=== PATIENT | female | born 1975 | race Caucasian/White ===

== ENCOUNTER → 2020-10-23 | Emergency (ER) | payer MEDICARE, MEDICAID ==
[~2020-10-23] VITALS: Ht 152.4 cm; Wt 65.9 kg
[~2020-10-23] MED LIST: diphenhydrAMINE 50 mg/ml inj IV ONE; normal saline 1000ML IV soln IVB ONE; proCHLORperazine 10 MG/2 ml inj IV ONE
[2020-10-23 18:54] VITALS: BP 139/71
== END | disposition home or self-care (01) ==
LOC: ER 14:34
DX: G43.909 Migraine, unspecified, not intractable, without status migrainosus (principal); R11.0 Nausea; H61.22 Impacted cerumen, left ear
CPT/HCPCS: 96361; 96374; 96375; 99284; J0780; J1200; J7030

== ENCOUNTER 2020-11-09 05:48 | Day surgery (SDC) | payer MEDICARE, MEDICAID ==
[2020-11-02 15:12] LABS: BASOPHILS # (AUTO) 0.1 X10'3 (0-0.2); BASOPHILS % (AUTO) 0.9 % (0-1); EOSINOPHILS % (AUTO) 0.6 % (0-6); LYMPHOCYTES # (AUTO) 1.5 X10'3 (1.1-4.8); LYMPHOCYTES % (AUTO) 20.7 % (21-51); MEAN CORPUSCULAR HGB CONC 33.9 g/dL (33.0-36.5); MEAN CORPUSCULAR VOLUME 91.4 FL (78-98); MEAN PLATELET VOLUME 7.4 FL (7.4-10.4); MONOCYTES # (AUTO) 0.5 X10'3 (0-0.9); MONOCYTES % (AUTO) 7.1 % (2-12); NEUTROPHILS # (AUTO) 5.2 X10'3 (1.8-7.7); NEUTROPHILS % (AUTO) 70.7 % (42-75); PRE OP HEMOGLOBIN 13.9 g/dL (12.0-16.0); PRE OP PLATELET COUNT 292 X10'3 (140-440); RED BLOOD COUNT 4.49 X10'6 (4.20-5.60); RED CELL DISTRIBUTION WIDTH 13.6 % (11.5-14.5)
[2020-11-02 15:19] LABS: HCG SERUM QL NEGATIVE
[2020-11-02 15:25] LABS: ALBUMIN 3.6 G/DL (3.4-5.0); ALBUMIN/GLOBULIN RATIO 0.8 (1.1-1.5); ALKALINE PHOSPHATASE 109 IU/L (46-116); BLOOD UREA NITROGEN 15 MG/DL (7-18); BUN/CREATININE RATIO 20.5 (6.6-38.0); CALCIUM 9.2 MG/DL (8.5-10.1); CHLORIDE 103 MMOL/L (99-107); CREATININE 0.73 MG/DL (0.40-0.90); PRE OP ALT 17 U/L (30-65); PRE OP ANION GAP 12 (8-16); PRE OP AST 11 U/L (10-37); PRE OP BILIRUB, TOTAL 0.3 MG/DL (0.0-1.0); PRE OP GLUCOSE 94 MG/DL (70-104); PRE OP POTASSIUM 3.6 MMOL/L (3.4-5.1); PRE OP SODIUM 139 MMOL/L (135-145); TOTAL CARBON DIOXIDE 24.1 MMOL/L (24-32); eGFR 86 ML/MIN
[~2020-11-09] VITALS: Ht 152.4 cm; Wt 66.0 kg
[~2020-11-09 05:48] MED LIST changes: +BETH25TA43 PO; +CALC-157 PO; +CHOL400T PO; +DOCU-22 PO; +GABA-530 PO; +MIRT15TA8 PO; +OMEP-50 PO; +ONDA-103 PO; +POLY119P2 PO; +RIZA10TA28 PO; +SENN8.6T19 PO; +SUMA25TA35 PO; +ZIPR20CA12 PO; +cefazolin/dext.iso 2gm/100ml IV ONE; -diphenhydrAMINE 50 mg/ml inj IV ONE; +famotidine 20mg tablet PO ONE; -normal saline 1000ML IV soln IVB ONE; -proCHLORperazine 10 MG/2 ml inj IV ONE; +ringers solution, lacted 1,000 ML IV SCH
[2020-11-09 06:19] VITALS: BP 146/88
[2020-11-09] MEDS ORDERED: BUPIVAcaine/PF 2.5 mg/ml (0.25%) 30ml vial ONE (06:52)
[2020-11-09] MEDS ORDERED: LIDOcaine 0.5% (5mg/ml) 50ml vial ONE (07:40)
[2020-11-09] MEDS ORDERED: fentaNYL/PF 50MCG/1 ML 2ML syringe ONE (07:45)
[2020-11-09] MEDS ORDERED: midazolam 1 mg/ML 2ml injection ONE (07:45)
[2020-11-09 08:10] VITALS: BP 120/85
--- NOTE | 2020-11-09 08:10 | NUR ---
Received from OR via , accompanied by Anesthesiologist DR HAND and report given by Anesthesiolgist. AWAKENS TO VOICE. VITALS STABLE. DRESSING DI. ZEN PAIN. FINGERS WARM AND PINK.
[2020-11-09] MEDS ORDERED: labetalol 20mg/4ml (5mg/ml) syringe IV PRN (08:15)
[2020-11-09] MEDS ORDERED: meperidine/PF 25mg/ml syringe IV PRN (08:15)
[2020-11-09] MEDS ORDERED: fentaNYL/PF 50MCG/1 ML 2ML syringe IV PRN ×2 (08:15)
[2020-11-09] MEDS ORDERED: ondansetron/PF 4mg/2ml inj IV PRN (08:15)
[2020-11-09] MEDS ORDERED: proCHLORperazine 10 MG/2 ml inj IV PRN (08:15)
[2020-11-09] MEDS ORDERED: acetaminophen 1,000mg/100ml IV 100 ML IV PRN (08:15)
[2020-11-09] MEDS ORDERED: morphine 2 MG/ML inj. syringe IV PRN (08:15)
[2020-11-09] MEDS ORDERED: morphine 4 MG/ML inj SYRINge IV PRN (08:15)
[2020-11-09] MEDS ORDERED: ringers solution, lacted 1,000 ML IV SCH (08:15)
[2020-11-09] MEDS ORDERED: hydrALAZINE 20mg/ml inj. IV PRN (08:15)
[2020-11-09 08:20] VITALS: BP 140/87
[2020-11-09 08:30] VITALS: BP 134/84
[2020-11-09] MEDS ORDERED: propofol inj 20 ML IV ONE (08:46)
--- NOTE | 2020-11-09 08:50 | NUR ---
AWAKE AND ORIENTED. VITALS STABLE. DRESSING DI. ZEN PAIN. 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
== END 2020-11-09 08:50 | disposition home or self-care (01) ==
LOC: PAS 05:48
PROVIDERS: ATTEND Orthopaedic Surgery Hand Surgery
DX: G56.01 Carpal tunnel syndrome, right upper limb (principal); Z20.822 Contact with and (suspected) exposure to COVID-19; G43.909 Migraine, unspecified, not intractable, without status migrainosus; F32.9 Major depressive disorder, single episode, unspecified; F41.9 Anxiety disorder, unspecified; Q05.9 Spina bifida, unspecified; G89.29 Other chronic pain; Z86.711 Personal history of pulmonary embolism; Z98.890 Other specified postprocedural states; Z79.899 Other long term (current) drug therapy; Z87.01 Personal history of pneumonia (recurrent); Z79.2 Long term (current) use of antibiotics
CPT/HCPCS: 29848; 36415; 80053; 82948; 84703; 85025; J2001; J2250; J2704; J3010; J3490; U0003; U0005; A4215; A6449; A7000; J7120

== ENCOUNTER 2021-01-18 05:56 | Day surgery (SDC) | payer MEDICARE, MEDICAID ==
[2021-01-14 12:41] LABS: BASOPHILS % (AUTO) 0.7 % (0-1); EOSINOPHILS # (AUTO) 0.2 X10'3 (0-0.9); EOSINOPHILS % (AUTO) 2.5 % (0-6); LYMPHOCYTES # (AUTO) 2.2 X10'3 (1.1-4.8); LYMPHOCYTES % (AUTO) 31.4 % (21-51); MEAN CORPUSCULAR HEMOGLOBIN 30.8 PG (27.0-31.0); MEAN CORPUSCULAR HGB CONC 33.5 g/dL (33.0-36.5); MEAN CORPUSCULAR VOLUME 91.8 FL (78-98); MEAN PLATELET VOLUME 7.5 FL (7.4-10.4); MONOCYTES # (AUTO) 0.5 X10'3 (0-0.9); NEUTROPHILS # (AUTO) 4.1 X10'3 (1.8-7.7); NEUTROPHILS % (AUTO) 58.4 % (42-75); PRE OP HEMATOCRIT 41.4 % (35.0-45.0); PRE OP HEMOGLOBIN 13.9 g/dL (12.0-16.0); PRE OP PLATELET COUNT 289 X10'3 (140-440); RED BLOOD COUNT 4.51 X10'6 (4.20-5.60); RED CELL DISTRIBUTION WIDTH 13.7 % (11.5-14.5)
[2021-01-14 13:04] LABS: ALBUMIN 3.2 G/DL (3.4-5.0); ALBUMIN/GLOBULIN RATIO 0.8 (1.1-1.5); ALKALINE PHOSPHATASE 88 IU/L (46-116); BLOOD UREA NITROGEN 13 MG/DL (7-18); BUN/CREATININE RATIO 19.7 (6.6-38.0); CALCIUM 8.9 MG/DL (8.5-10.1); CHLORIDE 108 MMOL/L (99-107); CREATININE 0.66 MG/DL (0.40-0.90); PRE OP ALT 15 U/L (30-65); PRE OP ANION GAP 10 (8-16); PRE OP AST 10 U/L (10-37); PRE OP BILIRUB, TOTAL 0.2 MG/DL (0.0-1.0); PRE OP GLUCOSE 74 MG/DL (70-104); PRE OP POTASSIUM 3.9 MMOL/L (3.4-5.1); PRE OP SODIUM 141 MMOL/L (135-145); TOTAL CARBON DIOXIDE 23.3 MMOL/L (24-32); TOTAL PROTEIN 7.2 G/DL (6.4-8.2); eGFR > 90 ML/MIN
[~2021-01-18] VITALS: Ht 152.4 cm; Wt 67.6 kg
[~2021-01-18 05:56] MED LIST changes: +MIRT-87 PO; -MIRT15TA8 PO; +NARA2.5T2 PO; -RIZA10TA28 PO; -SUMA25TA35 PO
[2021-01-18 06:05] VITALS: BP 129/81
[2021-01-18] MEDS ORDERED: BUPIVAcaine/PF 2.5 mg/ml (0.25%) 30ml vial ONE (06:43)
[2021-01-18] MEDS ORDERED: proCHLORperazine 10 MG/2 ml inj IV PRN (07:50)
[2021-01-18] MEDS ORDERED: morphine 2 MG/ML inj. syringe IV PRN (07:50)
[2021-01-18] MEDS ORDERED: morphine 4 MG/ML inj SYRINge IV PRN (07:50)
[2021-01-18] MEDS ORDERED: ondansetron/PF 4mg/2ml inj IV PRN (07:50)
[2021-01-18] MEDS ORDERED: acetaminophen 1,000mg/100ml IV 100 ML IV PRN (07:50)
[2021-01-18] MEDS ORDERED: ringers solution, lacted 1,000 ML IV SCH (07:50)
[2021-01-18] MEDS ORDERED: meperidine/PF 25mg/ml syringe IV PRN ×3 (07:50)
[2021-01-18] MEDS ORDERED: fentaNYL/PF 50MCG/1 ML 2ML syringe ONE (07:59)
[2021-01-18] MEDS ORDERED: midazolam 1 mg/ML 2ml injection ONE (07:59)
[2021-01-18] MEDS ORDERED: LIDOcaine 0.5% (5mg/ml) 50ml vial ONE (08:20)
[2021-01-18] MEDS ORDERED: propofol inj 20 ML IV ONE (08:20)
[2021-01-18 08:25] VITALS: BP 138/88
[2021-01-18] MEDS ORDERED: BUPIVAcaine/PF 2.5mg/ml (0.25%) 10ml vial IJ ONE (08:25)
--- NOTE | 2021-01-18 08:25 | NUR ---
Received from OR via [facility] IN STABLE CONDITION , accompanied by Anesthesiologist and E[employer] COUNSELOR report given by Jim. Addendum: 01/18/21 at 0859 by Brigitte Izquierdo RN Amended: Links added.
[2021-01-18 08:30] VITALS: BP 138/88
[2021-01-18 08:40] VITALS: BP 117/73
[2021-01-18 08:50] VITALS: BP 122/86
[2021-01-18 09:00] VITALS: BP 146/97
--- NOTE | 2021-01-18 09:15 | NUR ---
PATIENT DISCHARGED FROM PACU IN STABLE CONDITION AFTER DISCHARGE INSTRUCTIONS GIVEN. PATIENT GAVE VERBAL UNDERSTANDING OF INSTRUCTIONS GIVEN. PATIENT LEFT FACILITY IN WHEELCHAIR WITH RINX2. Addendum: 01/18/21 at 0943 by Brigitte Izquierdo RN Amended: Links added.
== END 2021-01-18 09:15 | disposition home or self-care (01) ==
LOC: PAS 05:56
PROVIDERS: ATTEND Orthopaedic Surgery Hand Surgery
DX: G56.02 Carpal tunnel syndrome, left upper limb (principal); Q05.9 Spina bifida, unspecified; G43.909 Migraine, unspecified, not intractable, without status migrainosus; E66.9 Obesity, unspecified; Z68.29 Body mass index [BMI] 29.0-29.9, adult; Z98.890 Other specified postprocedural states; Z79.899 Other long term (current) drug therapy; Z86.711 Personal history of pulmonary embolism
CPT/HCPCS: 29848; 36415; 80053; 85025; J2001; J2250; J2704; J3010; J3490; A4215; A7000; J7120

== ENCOUNTER 2021-02-26 16:46 | Emergency (ER) | payer MEDICARE, MEDICAID ==
[~2021-02-26] VITALS: Ht 152.4 cm; Wt 67.0 kg
[~2021-02-26 16:46] MED LIST changes: -cefazolin/dext.iso 2gm/100ml IV ONE; -famotidine 20mg tablet PO ONE; -ringers solution, lacted 1,000 ML IV SCH
[2021-02-26] MEDS ORDERED: mag hydrox/Alum hydrox/simeth 30ml oral suspension PO ONE (17:55)
[2021-02-26] MEDS ORDERED: LIDOcaine Viscous 15ml cup MM ONE (17:55)
[2021-02-26 18:01] LABS: BASOPHILS # (AUTO) 0.1 X10'3 (0-0.2); EOSINOPHILS # (AUTO) 0.2 X10'3 (0-0.9); EOSINOPHILS % (AUTO) 2.4 % (0-6); HEMATOCRIT 39.7 % (35.0-45.0); HEMOGLOBIN 13.5 g/dl (12.0-16.0); LYMPHOCYTES % (AUTO) 30.8 % (21-51); MEAN CORPUSCULAR HEMOGLOBIN 30.8 PG (27.0-31.0); MEAN CORPUSCULAR VOLUME 90.7 FL (78-98); MEAN PLATELET VOLUME 7.5 FL (7.4-10.4); MONOCYTES # (AUTO) 0.8 X10'3 (0-0.9); MONOCYTES % (AUTO) 8.3 % (2-12); NEUTROPHILS # (AUTO) 5.6 X10'3 (1.8-7.7); NEUTROPHILS % (AUTO) 57.5 % (42-75); PLATELET COUNT 284 X10'3 (140-440); RED BLOOD COUNT 4.38 X10'6 (4.20-5.60); RED CELL DISTRIBUTION WIDTH 13.7 % (11.5-14.5); WHITE BLOOD COUNT 9.7 X10'3 (4.5-11.0)
[2021-02-26 18:12] LABS: D-DIMER 0.64 MG/L FEU (0-0.50)
[2021-02-26 18:14] LABS: ALANINE AMINOTRANSFERASE 34 U/L (12-78); ALBUMIN 3.4 G/DL (3.4-5.0); ALBUMIN/GLOBULIN RATIO 0.9 (1.1-1.5); ALKALINE PHOSPHATASE 92 IU/L (46-116); ANION GAP 12 (8-16); ASPARTATE AMINO TRANSFERASE 13 U/L (10-37); BILIRUBIN,TOTAL 0.2 MG/DL (0.1-1.0); BLOOD UREA NITROGEN 19 MG/DL (7-18); BUN/CREATININE RATIO 26.4 (6.6-38.0); CALCIUM 8.7 MG/DL (8.5-10.1); CHLORIDE 110 MMOL/L (99-107); CREATININE 0.72 MG/DL (0.40-0.90); GLUCOSE 91 MG/DL (70-104); POTASSIUM 4.1 MMOL/L (3.5-5.1); SODIUM 143 MMOL/L (135-145); TOTAL CARBON DIOXIDE 20.6 MMOL/L (24-32); TOTAL PROTEIN 7.4 G/DL (6.4-8.2); eGFR 88 ML/MIN
[2021-02-26] MEDS ORDERED: normal saline 1000ML IV soln IVB ONE (19:00)
[2021-02-26] MEDS ORDERED: metoclopramide 5 mg/ml inj IV ONE (19:00)
[2021-02-26] MEDS ORDERED: diphenhydrAMINE 50 mg/ml inj IV ONE (19:00)
[2021-02-26] MEDS ORDERED: ONDA4TAB12 PO (19:12)
[2021-02-26] MEDS ORDERED: OMEP40CA21 PO (19:12)
--- NOTE | 2021-02-26 19:45 | NUR ---
Pt placed on a bedpan. She is paralysed below the waist and unable to ambulate.
--- NOTE | 2021-02-26 20:00 | NUR ---
IVF placed on a pressure bag.
--- NOTE | 2021-02-26 20:05 | NUR ---
Urine was dark and pungent.
--- NOTE | 2021-02-26 20:15 | NUR ---
Pt called for her caregiver to pick her up.
--- NOTE | 2021-02-26 20:36 | NUR ---
Pt given and understands d/c instructions. Pt was dressed, IV d/c'd, catheter was intact.
[2021-02-26 20:37] VITALS: BP 134/91
== END 2021-02-26 20:40 | disposition home or self-care (01) ==
LOC: ER 16:47
DX: E86.0 Dehydration (principal); Z20.822 Contact with and (suspected) exposure to COVID-19; R11.2 Nausea with vomiting, unspecified; R07.89 Other chest pain; G43.909 Migraine, unspecified, not intractable, without status migrainosus; Z79.899 Other long term (current) drug therapy
CPT/HCPCS: 36415; 71045; 80053; 83880; 84484; 85025; 85379; 87635; 93005; 96374; 96375; 99285; C9803; J1200; J2765; J7030

== ENCOUNTER 2021-06-04 13:46 | Emergency (ER) | payer MEDICARE, MEDICAID ==
[~2021-06-04 13:46] MED LIST changes: +ONDA4TAB12 PO
== END 2021-06-04 17:42 | disposition left against medical advice (07) ==
LOC: ER 13:47
DX: Z76.0 Encounter for issue of repeat prescription (principal); Z53.21 Procedure and treatment not carried out due to patient leaving prior to being seen by health care provider

== ENCOUNTER 2021-08-09 10:55 | Emergency (ER) | payer MEDICARE, MEDICAID ==
[~2021-08-09] VITALS: Ht 152.4 cm; Wt 63.2 kg
[2021-08-09 11:07] VITALS: BP 125/85
[2021-08-09] MEDS ORDERED: BENZ-38 PO (11:27)
== END 2021-08-09 11:40 | disposition home or self-care (01) ==
LOC: ER 10:56
DX: R05.9 Cough, unspecified (principal); R07.89 Other chest pain; J02.9 Acute pharyngitis, unspecified; G43.909 Migraine, unspecified, not intractable, without status migrainosus; K21.9 Gastro-esophageal reflux disease without esophagitis; Z86.711 Personal history of pulmonary embolism; Z72.89 Other problems related to lifestyle; Z79.899 Other long term (current) drug therapy
CPT/HCPCS: 99284

== ENCOUNTER 2022-12-23 07:48 | Day surgery (SDC) | payer MEDICARE, MEDICAID ==
[2022-12-13 15:07] LABS: BASOPHILS # (AUTO) 0.1 X10'3 (0-0.2); BASOPHILS % (AUTO) 1.2 % (0-1); EOSINOPHILS # (AUTO) 0.2 X10'3 (0-0.9); EOSINOPHILS % (AUTO) 2.3 % (0-6); LYMPHOCYTES # (AUTO) 2.8 X10'3 (1.1-4.8); LYMPHOCYTES % (AUTO) 28.4 % (21-51); MEAN CORPUSCULAR HEMOGLOBIN 31.4 PG (27.0-31.0); MEAN CORPUSCULAR HGB CONC 33.4 g/dL (33.0-36.5); MEAN PLATELET VOLUME 7.5 FL (7.4-10.4); MONOCYTES # (AUTO) 0.9 X10'3 (0-0.9); NEUTROPHILS # (AUTO) 5.7 X10'3 (1.8-7.7); NEUTROPHILS % (AUTO) 59.1 % (42-75); PRE OP HEMOGLOBIN 13.7 g/dL (12.0-16.0); PRE OP PLATELET COUNT 282 X10'3 (140-440); RED BLOOD COUNT 4.36 X10'6 (4.20-5.60); RED CELL DISTRIBUTION WIDTH 13.2 % (11.5-14.5)
[2022-12-13 15:22] LABS: ALBUMIN 3.7 G/DL (3.4-5.0); ALKALINE PHOSPHATASE 91 IU/L (46-116); BLOOD UREA NITROGEN 14 MG/DL (7-18); BUN/CREATININE RATIO 21.2 (10.0-20.0); CALCIUM 9.1 MG/DL (8.5-10.1); CHLORIDE 105 MMOL/L (99-107); CREATININE 0.66 MG/DL (0.40-0.90); PRE OP ALT 32 U/L (30-65); PRE OP ANION GAP 11 (8-16); PRE OP AST 19 U/L (10-37); PRE OP BILIRUB, TOTAL 0.3 MG/DL (0.0-1.0); PRE OP GLUCOSE 82 MG/DL (70-104); PRE OP POTASSIUM 3.5 MMOL/L (3.4-5.1); PRE OP SODIUM 139 MMOL/L (135-145); TOTAL CARBON DIOXIDE 23.5 MMOL/L (24-32); TOTAL PROTEIN 7.3 G/DL (6.4-8.2); eGFR > 90 ML/MIN
[2022-12-23] VITALS (9 sets, daily range): BP systolic 114–137; BP diastolic 66–93
[~2022-12-23] VITALS: Ht 152.4 cm; Wt 68.0 kg
[~2022-12-23 07:48] MED LIST changes: +ACET-1025 PO; +ASPI-144 PO; -GABA-530 PO; +GABA300C PO; +IBUP-2697 PO; +MELA5CAP PO; -MIRT-87 PO; +MIRT-88 PO; -NARA2.5T2 PO; -OMEP-50 PO; +OMEP20CA16 PO; -ONDA-103 PO; -ONDA4TAB12 PO; -POLY119P2 PO; +cefazolin 2gm/D5W 100mL 100 ML IV ONE; +famotidine 20mg tablet PO ONE; +ringers solution, lacted 1,000 ML IV SCH
[2022-12-23] MEDS ORDERED: LIDOcaine 1% 30ml preserv. free vial ONE (07:51)
[2022-12-23 09:37] LABS: HCG SERUM QL NEGATIVE
[2022-12-23] MEDS ORDERED: MIDAZolam 1 MG/ML 5ML VIAL ONE (10:43)
[2022-12-23] MEDS ORDERED: BUPIVAcaine/PF 2.5 mg/ml (0.25%) 30ml vial IJ ONE (11:01)
--- NOTE | 2022-12-23 11:30 | NUR ---
Received from OR via [facility] , accompanied by Anesthesiologist DR YANEZ and report given by Anesthesiolgist. PT RESENTS WITH 20G RIGHT HAND, DRESSING ON LEFT HAND YESSENIA, VSS. Addendum: 12/23/22 at 1152 by Astrid Scott RN, RN Amended: Links added.
[2022-12-23] MEDS ORDERED: HYDROcodone/acetaminophen 10/325mg tab PO ONE (11:45)
[2022-12-23] MEDS ORDERED: meperidine/PF 25mg/ml syringe IV PRN ×3 (11:45)
[2022-12-23] MEDS ORDERED: morphine 2 MG/ML inj. syringe IV PRN (11:45)
[2022-12-23] MEDS ORDERED: proCHLORperazine 10 MG/2 ml inj IV PRN (11:45)
[2022-12-23] MEDS ORDERED: morphine 4 MG/ML inj SYRINge IV PRN (11:45)
[2022-12-23] MEDS ORDERED: ringers solution, lacted 1,000 ML IV SCH (11:45)
--- NOTE | 2022-12-23 12:00 | NUR ---
PT HAS RASH LOCALIZED ON RIGHT ARM. PT GIVEN BENADRLY PER DR YANEZ. Addendum: 12/23/22 at 1216 by Astrid Scott RN, RN Amended: Links added.
[2022-12-23] MEDS ORDERED: diphenhydrAMINE 50 mg/ml inj IM ONE (12:05)
[2022-12-23] MEDS ORDERED: diphenhydrAMINE 50 mg/ml inj ONE (12:06)
--- NOTE | 2022-12-23 12:40 | NUR ---
RASH ON PT RIGHT LOWER ARM HAS RESOLVED. PER DR BEAU VIGIL TO LET PT GO HOME Addendum: 12/23/22 at 1257 by Astrid Scott RN, RN Amended: Links added.
--- NOTE | 2022-12-23 12:50 | NUR ---
DC HOME: ALL DISCHARGE CRITERIA HAS BEEN MET. VSS, PAIN AT TOLERABLE LEVEL. ABLE TO SAFELY AMBULATE AND TRANSFER SELF. IV TAKEN OUT WITHOUT ANY COMPLICATIONS. ALL DISCHARGE INSTRUCTIONS COVERED WITH PATIENT AND ALL QUESTIONS ANSWERED. PATIENT TAKEN OUT VIA WHEELCHAIR TO PERSONAL VEHICLE WHERE FAMILY/FRIEND DROVE PATIENT HOME. Addendum: 12/23/22 at 1301 by Astrid Scott RN, RN Amended: Links added.
== END 2022-12-23 12:50 | disposition home or self-care (01) ==
LOC: PAS 07:48
PROVIDERS: ATTEND Orthopaedic Surgery Hand Surgery
DX: M18.12 Unilateral primary osteoarthritis of first carpometacarpal joint, left hand (principal); F41.9 Anxiety disorder, unspecified; F32.A Depression, unspecified; K21.9 Gastro-esophageal reflux disease without esophagitis; Q05.9 Spina bifida, unspecified; G43.909 Migraine, unspecified, not intractable, without status migrainosus; M19.032 Primary osteoarthritis, left wrist; Z86.711 Personal history of pulmonary embolism; Z98.890 Other specified postprocedural states; Z72.89 Other problems related to lifestyle; Z79.899 Other long term (current) drug therapy
CPT/HCPCS: 25310; 25447; 36415; 80053; 82948; 84703; 85025; 93005; J0690; J1200; J2175; J2250; J3490; J7030; J7120; Z7506; Z7508; Z7512; A4215; A4618; A7000